=== PATIENT | female | born 1995 | race Caucasian/White ===

== ENCOUNTER 2017-06-10 19:24 | Emergency (ER) | payer OTHER ==
[~2017-06-10] VITALS: Ht 167.6 cm; Wt 56.7 kg
[~2017-06-10 19:24] MED LIST: CEPHALEXIN500 M1 PO; PRENATAL1 TA3 PO; PROTONIX40 MG PO; ULTRAM50 MG PO
[2017-06-10] MEDS ORDERED: LIDEX 0.05% CRE15 GM T (19:51)
[2017-06-10] MEDS ORDERED: SEPTDS PO (19:51)
== END 2017-06-10 19:52 | disposition home or self-care (01) ==
LOC: ED 19:24
DX: S50.861A Insect bite (nonvenomous) of right forearm, initial encounter (principal); R03.0 Elevated blood-pressure reading, without diagnosis of hypertension; Z79.899 Other long term (current) drug therapy; W57.XXXA Bitten or stung by nonvenomous insect and other nonvenomous arthropods, initial encounter; Y93.89 Activity, other specified; Y92.89 Other specified places as the place of occurrence of the external cause; Y99.8 Other external cause status

== ENCOUNTER 2017-07-22 03:02 | Emergency (ER) | payer OTHER ==
[~2017-07-22] VITALS: Ht 165.1 cm; Wt 50.8 kg
[~2017-07-22 03:02] MED LIST changes: +LIDEX 0.05% CRE15 GM T; +SEPTDS PO
[2017-07-22] MEDS ORDERED: ENSKYCE 28 TAB1 EACH PO (03:17)
[2017-07-22 03:33] LABS: BILIRUBIN NEGATIVE (NEGATIVE); BLOOD 3+ (NEGATIVE); CLARITY CLOUDY (CLEAR); COLOR YELLOW (YELLOW); GLUCOSE NEGATIVE (NEGATIVE); KETONE NEGATIVE (NEGATIVE); LEUKO ESTERASE 2+ (NEGATIVE); NITRITE NEGATIVE (NEGATIVE); PH 7.5 (5.0-9.0); UROBILINOGEN 0.2 E.U./dl (0.2-1.0)
[2017-07-22 03:41] LABS: WBC TNTC wbc/hpf (0-5)
[2017-07-22] MEDS ORDERED: PYRIDIUM200 M1 PO (03:50)
[2017-07-22] MEDS ORDERED: SEPTDS PO (03:50)
== END 2017-07-22 04:22 | disposition home or self-care (01) ==
LOC: ED 03:02
PROVIDERS: Emergency Medicine
DX: N39.0 Urinary tract infection, site not specified (principal)

== ENCOUNTER 2017-09-09 17:46 | Emergency (ER) | payer OTHER ==
[~2017-09-09] VITALS: Ht 165.1 cm; Wt 55.3 kg
[~2017-09-09 17:46] MED LIST changes: +ENSKYCE 28 TAB1 EACH PO; +PYRIDIUM200 M1 PO
== END 2017-09-09 18:46 | disposition home or self-care (01) ==
LOC: ED 17:46
DX: J02.9 Acute pharyngitis, unspecified (principal); R50.9 Fever, unspecified; Z79.899 Other long term (current) drug therapy

== ENCOUNTER 2019-05-14 17:34 | Emergency (ER) | payer OTHER ==
[~2019-05-14] VITALS: Ht 165.1 cm; Wt 60.3 kg
[2019-05-14] MEDS ORDERED: AVPAK AZITHROM250 MG PO (19:44)
== END 2019-05-14 19:48 | disposition home or self-care (01) ==
LOC: ED 17:34
DX: O99.512 Diseases of the respiratory system complicating pregnancy, second trimester (principal); J20.9 Acute bronchitis, unspecified; Z3A.22 22 weeks gestation of pregnancy; Z79.899 Other long term (current) drug therapy

== ENCOUNTER 2021-05-29 10:00 | Emergency (ER) | payer OTHER ==
[~2021-05-29] VITALS: Wt 49.4 kg
[~2021-05-29 10:00] MED LIST changes: +AVPAK AZITHROM250 MG PO
[2021-05-29 10:37] LABS: BASO % 0.1 % (0.0-1.0); HEMATOCRIT 38.9 % (37.0-47.0); LYMPH # 0.9 10*3/uL (1.3-4.4); LYMPH % 8.5 % (27.0-41.0); MEAN CELL VOLUME 89.2 fl (81.0-99.0); MEAN CORPUSCULAR HGB 29.8 pg (27.0-31.0); MEAN CORPUSCULAR HGB CONC 33.4 g/dl (33.0-37.0); MONO # 0.9 10*3/uL (0.1-1.0); MONO % 8.3 % (3.0-9.0); NEUT # 9.1 10*3/uL (2.3-7.9); NEUT % 82.8 % (47.0-73.0); PLATELET COUNT AUTOMATED 178 10*3/uL (130-400); RED BLOOD COUNT 4.36 10*6/uL (4.10-5.10); RED CELL DISTRI WIDTH 12.1 % (0-14.5); WHITE BLOOD COUNT 10.9 10*3/uL (4.8-10.8)
[2021-05-29 10:41] LABS: BILIRUBIN 2+ (Negative); BLOOD Trace-Lysed (Negative); CLARITY Turbid (Clear); COLOR Red (Yellow); GLUCOSE Negative (Negative); KETONE 1+ (Negative); NITRITE Positive (Negative); SPECIFIC GRAVITY >= 1.030 (1.001-1.030); UROBILINOGEN 0.2 E.U./dl (0.0-1.0)
[2021-05-29 10:53] LABS: ALBUMIN 3.3 gm/dl (3.1-4.5); ALKALINE PHOSPHATASE 65 U/L (45-117); BUN 13 mg/dl (7-24); CHLORIDE 103 mmol/L (98-107); CREATININE 0.81 mg/dL (0.55-1.02); POTASSIUM 3.3 mmol/L (3.5-5.1); SGOT/AST 5 IU/L (3-35); SGPT/ALT 9 U/L (12-78); SODIUM 135 mmol/L (136-145)
[2021-05-29 10:54] LABS: LEUKO ESTERASE 3+ (Negative)
[2021-05-29 10:55] LABS: BACTERIA 2+; WBC 51-100 wbc/hpf (0-5)
[2021-05-29] MEDS ORDERED: CEFUROXIME250 MG PO (11:33)
== END 2021-05-29 11:39 | disposition home or self-care (01) ==
LOC: ED 10:00
PROVIDERS: Emergency Medicine
DX: N39.0 Urinary tract infection, site not specified (principal); Z79.899 Other long term (current) drug therapy

== ENCOUNTER 2021-12-23 08:49 | Emergency (ER) | payer OTHER ==
[~2021-12-23] VITALS: Ht 165.1 cm; Wt 54.4 kg
[~2021-12-23 08:49] MED LIST changes: +CEFUROXIME250 MG PO
[2021-12-23 09:26] LABS: BILIRUBIN Negative (Negative); BLOOD Negative (Negative); CLARITY Clear (Clear); COLOR Dark Yellow (Yellow); GLUCOSE Negative (Negative); KETONE Trace (Negative); LEUKO ESTERASE Trace (Negative); NITRITE Negative (Negative); SPECIFIC GRAVITY >= 1.030 (1.001-1.030)
[2021-12-23 09:39] LABS: BACTERIA 1+; CALCIUM OXALATE CRYSTALS Trace; MUCOUS 3+; YEAST TRACE
[2021-12-23 09:40] LABS: HEMATOCRIT 39.2 % (37.0-47.0); MEAN CELL VOLUME 90.7 fl (81.0-99.0); MEAN CORPUSCULAR HGB 30.1 pg (27.0-31.0); MEAN CORPUSCULAR HGB CONC 33.2 g/dl (33.0-37.0); MEAN PLATELET VOLUME 11.1 fl (9.6-12.3); PLATELET COUNT AUTOMATED 167 10*3/uL (130-400); RED BLOOD COUNT 4.32 10*6/uL (4.10-5.10); RED CELL DISTRI WIDTH 13.4 % (0-14.5); WHITE BLOOD COUNT 6.6 10*3/uL (4.8-10.8)
[2021-12-23 09:41] LABS: MANUAL DIFF REFLEX YES
[2021-12-23 09:53] LABS: ALKALINE PHOSPHATASE 50 U/L (45-117); BUN 8 mg/dl (7-24); CHLORIDE 108 mmol/L (98-107); LIPASE 119 U/L (73-393); POTASSIUM 3.7 mmol/L (3.5-5.1); SGOT/AST 23 IU/L (3-35); SGPT/ALT 15 U/L (12-78); SODIUM 140 mmol/L (136-145); TOTAL PROTEIN 7.5 gm/dL (6.4-8.2)
[2021-12-23 10:04] LABS: ATYPICAL LYMPHS 1 % (0-0); PLATELET SUFFICIENCY NORMAL (NORMAL); TOTAL CELLS COUNTED 100 #CELLS
[2021-12-23] MEDS ORDERED: ONDANSETRON4 MG SL (11:24)
== END 2021-12-23 11:32 | disposition home or self-care (01) ==
LOC: ED 08:49
PROVIDERS: Emergency Medicine
DX: K29.70 Gastritis, unspecified, without bleeding (principal); Z79.899 Other long term (current) drug therapy

== ENCOUNTER 2025-02-03 18:35 | Emergency (ER) | payer OTHER ==
[~2025-02-03] VITALS: Wt 48.5 kg
[~2025-02-03 18:35] MED LIST changes: +ONDANSETRON4 MG SL
[2025-02-03 19:23] LABS: BILIRUBIN Negative (Negative); BLOOD Negative (Negative); CLARITY Clear (Clear); COLOR Yellow (Yellow); KETONE Negative (Negative); LEUKO ESTERASE Negative (Negative); NITRITE Negative (Negative); PH 7.0 (4.5-8.0); SPECIFIC GRAVITY 1.015 (1.001-1.030); UROBILINOGEN 2.0 E.U./dl (0.0-1.0)
[2025-02-03 19:30] LABS: MUCOUS 1+
== END 2025-02-03 20:12 | disposition home or self-care (01) ==
LOC: ED 18:35
PROVIDERS: Nurse Practitioner Family
DX: O20.9 Hemorrhage in early pregnancy, unspecified (principal); Z79.899 Other long term (current) drug therapy; Z3A.01 Less than 8 weeks gestation of pregnancy